=== PATIENT | male | born 1990 | race African-American/Black ===

== ENCOUNTER 2024-11-06 11:27 | Emergency (ER) | payer MEDICARE, SELFPAY ==
[2024-11-06] VITALS (8 sets, daily range): BP systolic 139–185; BP diastolic 97–130; BMI 37.5
--- NOTE | 2024-11-06 12:43 | ED.GENMED ---
History of Present Illness
General
Chief Complaint: Abdominal Pain
Source: patient
Exam Limitations: none
Time Seen by Provider: 11/06/24 12:25
History of Present Illness
History of Present Illness:
34-year-old male with history of hypertension, hyperlipidemia on Wegovy for weight loss presents complaining of lower abdominal pain, constipation and vomiting. After vomiting today he spit up some red blood. He notes the pain in his abdomen
persist. He has not had a normal bowel movement in over a week. He denies any flank pain or urinary symptoms. No fever. No other complaints at this time
Phy Exam
Physical Exam
Physical Exam:
General: Well-appearing male no acute respiratory distress
HEENT normocephalic atraumatic heart: Regular rate and rhythm no murmurs
Lungs: Clear no wheeze
Abdomen soft tender to the left lower quadrant no guarding or rebound tenderness or rebound tenderness
Extremities: No cyanosis or edema
Skin warm no rash
Course
Orders/Labs/Results
Orders:
Orders
11/06/24 12:39
CT Abd/pelvis W Iv Cont Urgent
Comment:
Reason For Exam: llq pain
11/06/24 12:58
Complete Blood Count/With Diff Urgent
Comprehensive Metabolic Panel Urgent
Lipase Urgent
11/06/24 13:07
Urinalysis Reflex To Culture Urgent
Date Specimen was Collected: 11/06/24
Time Specimen was Collected: 13:05
Urine Microscopic Reflex Cult Urgent
11/06/24 13:30
Ketorolac [Toradol] 15 mg IV NOW STA
Abnormal Lab Results
11/06/24 11/06/24
12:58 13:07
RBC 6.89 H 10^6/uL
(4.70-6.10)
MCV 63.9 L fL
(80.0-94.0)
MCH 19.9 L pg
(27.0-31.0)
MCHC 31.1 L g/dL
(33.0-37.0)
RDW 19.0 H %
(11.5-14.5)
Total Protein 8.6 H g/dl
(6.3-8.2)
Ur Occult Blood Reflex 4+ A
(Negative)
Urine RBC 50-60 A /HPF
(0-2)
Urine Bacteria (Reflex) Few A
(Negative)
Urine Albumin (Reflex) 1+ A
(Neg - Trace)
11/06/24 12:58
11/06/24 12:58
Vital Signs
Initial and Last Documented VS:
Initial Vital Signs
Temp Pulse Resp BP Pulse Ox
98.8 F 94 20 166/97 96
11/06/24 11:29 11/06/24 11:29 11/06/24 11:29 11/06/24 11:29 11/06/24 11:29
Last Documented Vital Signs
Temp Pulse Resp BP Pulse Ox
98.2 F 91 23 160/107 99
11/06/24 13:11 11/06/24 16:15 11/06/24 16:15 11/06/24 17:31 11/06/24 17:32
MDM/Problems Addressed
Differential Diagnosis Includes:
Patient with lower abdominal pain and vomiting. He has been constipated. He is tender on exam. Consider constipation versus bowel obstruction versus diverticulitis. Also consider medication adverse reaction as he is on Wegovy. Will check for
pancreatitis as well. Given the tenderness on exam, CT of the abdomen is pending.
*Pulse Oximetry
SaO2: 96
Oxygen Mode of Delivery: Room air
Patient hypoxic: no
*Critical Care Note
Total Time (30-74mins, 75-104mins- exclusive of procedures): Not Applicable
Update Note
Update Note:
CT demonstrates 3.2 mm stone in the mid left ureter. No infection in the urine. Patient feeling better after Toradol. I suspect the patient's pain is from his kidney stone is passing. Prescribed Flomax anti-inflammatories and nausea medicine.
Return precautions were given but stable for discharge
ED Attending Note
-
Portions of this chart may have been created with voice recognition software.� Occasional wrong word or��sound alike� substitutions may have occurred due to the inherent limitations of voice recognition software.
Discharge Plan
Departure
Patient Disposition: Home (Routine Discharge)
Date of Disposition: 11/06/24
Time of Disposition: 17:50
Patient with high blood pressure during this ER visit?: No
Discharge Problem:
Kidney stone
Instructions: Kidney Stones (DC)
Prescriptions:
New
tamsulosin [Flomax] 0.4 mg capsule
0.4 mg PO DAILY Qty: 14 0RF
ondansetron 4 mg tablet,disintegrating
4 mg PO Q8H PRN (Reason: nausea and vomiting) Qty: 10 0RF
ibuprofen 600 mg tablet
600 mg PO TID PRN (Reason: Pain) Qty: 14 0RF
No Action
Wegovy 2.4 mg/0.75 mL Pen Injector
2.4 mg SC WEEKLY
amlodipine [Norvasc] 10 mg Tablet
10 mg DAILY
losartan 100 mg Tablet
100 mg PO DAILY
Referrals:
ROSEMARIE MENDEZ [Other]
Activity Restrictions/Additional Instructions:
Drink plenty of fluids. Use the prescribed medicine as directed. Seek further treatment if you develop increasing pain vomiting fever or other concerning findings.
Interventions
Interventions:
*Risk Screen - Suicide Last Done: 11/06/24 11:29
*General Assessment Last Done: 11/06/24 11:29
*Neglect/Abuse Screening Last Done: 11/06/24 11:29
*ED- Fall Risk Assessment Last Done: 11/06/24 13:00
*ED COVID-19 Vaccine History Last Done: 11/06/24 13:00
BH-Kzlnfl-Skkasywmis Assessment Last Done: 11/06/24 13:00
Discharge Date and Time
Print Language: TRISTANIAN
[2024-11-06 13:19] LABS: Urine Character Clear (Clear)
[2024-11-06 13:27] LABS: ALT (SGPT) 18 U/L (0-50); AST (SGOT) 26 U/L (17-59); Albumin 5.0 g/dl (3.5-5.0); Alkaline Phosphatase 65 U/L (38-126); Blood Urea Nitrogen 13 mg/dl (9-20); Calcium 10.0 mg/dl (8.4-10.2); Carbon Dioxide 29 mmol/L (22-30); Chloride 105 mmol/L (98-107); Estimated Creatinine Clearance 100 ml/min; Glucose 88 mg/dl (70-99); Lipase 130 U/L (23-300); Potassium 4.5 mmol/L (3.5-5.1); Sodium 141 mmol/L (135-145); Total Protein 8.6 g/dl (6.3-8.2); eGFR > 60.00
[2024-11-06 13:32] LABS: Hematocrit 44.0 % (39.0-52.0); Hemoglobin 13.7 g/dL (13.0-18.0); Mean Corp Hgb Conc. 31.1 g/dL (33.0-37.0); Mean Corpuscular Volume 63.9 fL (80.0-94.0); Nucleated Red Blood Cells % 0 % (-); Platelet Count 223 10^3/uL (130-400); Red Cell Dist. Width 19.0 % (11.5-14.5)
[2024-11-06] MEDS: TORADOL 15 MG IV (13:36)
[2024-11-06 13:39] LABS: Urine Red Blood Cell 50-60 /HPF (0-2); Urine Squamous Cell 0-2 /LPF (Few); Urine White Cell 0-2 /HPF (0-5)
== END 2024-11-06 18:10 | disposition home or self-care (01) ==
LOC: EMR 11:27
PROVIDERS: Physician Assistant; EMERGENCY PHYSICIAN Emergency Medicine
DX: N20.2 Calculus of kidney with calculus of ureter (principal); K59.00 Constipation, unspecified; I10 Essential (primary) hypertension; E78.5 Hyperlipidemia, unspecified
CPT/HCPCS: 99284; 96374; 74177; 80053; 81003; 81015; 83690; 85025; Q9967